=== PATIENT | male | born 1975 | race Asian ===

== ENCOUNTER 2020-12-08 17:23 | Emergency (ER) | payer OTHER ==
[~2020-12-08] VITALS: Ht 170.2 cm; Wt 70.3 kg
[2020-12-08 17:24] VITALS: BP_SYST 152; BP_SYST 158; BP_DIAS 102
[2020-12-08 17:30] VITALS: BP 154/102
--- NOTE | 2020-12-08 17:43 | ER.PDOC ---
General Chief Complaint: Altered Mental Status Stated Complaint: AMS Time seen by MD: 17:23 Source: patient, EMS Exam Limitations: no limitations, intoxication History of Present Illness Initial Comments This 45-year-old [place] male comes in with a complaint that he isConfused after taking a THC laced gummy bear. Patient states that he was taking this because of insomnia. He indicates that he has been on trazodone started out at 25 mg and work his way up to a max of 50 mg when that did not work he stopped taking his trazodone4 days agoPatient then started taking Ambien for his insomnia and that did not work so today he did the gummy bear THC and is ratherr high right now Character of AMS: trouble concentrating Context: new medications (THC) Usually: orientedx3, alert but confused Associated Symptoms: other (only c/o insomnia) Allergies: Coded Allergies: No Known Allergies (Unverified , 12/08/20) Past Medical History Medical History: hypertension Surgical History: no surgical history Social History Alcohol Use: occassionally Drug Use: none Review of Systems Psychiatric/Neurological: anxiety (anxiety and insomnia started about 2 months ago. pt does not idenitfy any cause), other All Other Systems: Reviewed and Negative Physical Exam General Appearance: no distress HEENT: no apparent trauma, EOM's intact, no nystagmus, PERRL, ENT inspection nml, pharynx nml, airway intact, oral exam nml Neuro/Psych: oriented x3, nml speech/cognition, nml mood/affect Cranial Nerves: nml as tested Peripheral Exam: motor nml, sensation nml, reflexes nml Neck: supple, non-tender, no carotid bruit Respiratory: no resp distress, breath sounds nml CVS: reg rate & rhythm, heart sounds nml Abdomen: non-tender, no organomegaly, no distention Skin: color nml, no rash, warm/dry Extremities: non-tender, nml ROM, no pedal edema Results/Orders Results/Orders Orders - FAITH NAQVI MD Drug Scrn Med W Confirmation (12/08/20 17:38) Vital Signs Date Time Temp Pulse Resp B/P (MAP) Pulse Ox O2 Delivery O2 Flow Rate FiO2 12/08/20 17:30 98.1 94 18 154/102 (119) 95 Room Air 12/08/20 17:24 98.1 98 18 95 12/08/20 17:24 98.1 94 18 Laboratory Tests Test 12/08/20 17:35 Urine Opiates Screen NEGATIVE (c/o300ng/mL) Urine Methadone Screen NEGATIVE (c/o300ng/mL) Urine Barbiturates Screen NEGATIVE (c/o200ng/mL) Urine Phencyclidine Screen NEGATIVE (c/o 25ng/mL) Ur Amphetamine/Methamphetamine NEGATIVE (ka5216vb/mL) Urine MDMA Screen (Ecstasy) NEGATIVE (c/o300ng/mL) Urine Benzodiazepines Screen NEGATIVE (c/o200ng/mL) Urine Cocaine Metabolite Screen NEGATIVE (c/o300ng/mL) Ur Tetrahydrocannabinol (THC) Scrn PRESUMPTIVE POSITIVE (c/o Progress Progress Patient's drug screen was positive only for THC.So, nothing else was in his THC gummy. I have visited with his sister and him again to advise him to follow-up with psychiatry to evaluate for an underlying anxiety disorder that may be leading up to this problem of his sleeping. I recommended that he not take any more THC. Patient has both Ambien andTrazodone. I told him I prefer the trazodone that he would push it up to a maximum of 200 mg per night. He only went up to 50 mg at night so cannot say it is an effective until he pushes that the max. Told him that if he stays with the Ambien it is 1 pill only and that is the max he can take of the Ambien. ER DEPART Departure Time of Disposition: 18:29 Disposition: 01 HOME, SELF-CARE Impression: Primary Impression: Drug reaction Condition: Stable Duration or Time Spent with Pa: FAITH Casey MD Dec 08, 2020 17:43
--- NOTE | 2020-12-08 18:39 | NUR ---
PATIENT/FAMILY CONCERNS FAMILY MEMBER AT BEDSIDE STATES SHE DOES NOT FEEL COMFORTABLE TAKING PATIENT HOME DUE TO INTERMITTENT SHAKING AND FACIAL SCRUNCHING. DR. NAILS NOTIFIED, STATES SHE WILL SPEAK WITH THE PATIENT/FAMILY AND EASE CONCERNS.
== END 2020-12-08 18:50 | disposition home or self-care (01) ==
LOC: ER 17:23
DX: G47.00 Insomnia, unspecified (principal); I10 Essential (primary) hypertension; T42.6X5A Adverse effect of other antiepileptic and sedative-hypnotic drugs, initial encounter; Y92.89 Other specified places as the place of occurrence of the external cause
CPT/HCPCS: 80307; 99283